=== PATIENT | male | born 1955 | race Caucasian/White ===

== ENCOUNTER → 2017-02-19 | Outpatient (CLI) | payer OTHER ==
[~2017-02-19] MED LIST: CONTRAST GIVEN MC PRN; GADOBUTROL 7.5 MMOL/7.5 ML VIAL INT ART ONE; IOHEXOL 300 MG/ML 50 ML VIAL. INT ART ONE; LIDOCAINE 1% Multi-Dose 20 ML VIAL. ID ONE
--- NOTE | 2017-02-19 15:49 | KCIC ---
PROCEDURE MR arthrogram of the right elbow HISTORY Right elbow pain posteriorly. Weight lifting injury. TECHNIQUE Intra-articular contrast injection reported separately. Standard multiplanar images obtained. COMPARISON None FINDINGS Biceps and brachialis tendons are intact. Triceps tendon intact. The common flexor tendon is intact. Ulnar collateral ligament is intact There is mild common extensor tendinosis with slightly increased signal and thickening, but no measurable defect or tear. No evidence of radial collateral ligament or lateral ulnar collateral ligament rupture. Primary osteoarthritis with cartilage loss about the elbow. No bone lesion or acute fracture. Osteochondral loose body identified posterior to the medial humeral epicondyle measuring 7 millimeter. IMPRESSION 1. Primary osteoarthritis. 2. Posterior loose body. 3. Mild common extensor tendinosis without measurable tear. Electronically signed by: Nasim Olvera MD (Feb 19, 2017 15:47:22)
== END | disposition home or self-care (01) ==
LOC: KCIC 12:42
PROVIDERS: ATTEND Orthopaedic Surgery
DX: M25.521 Pain in right elbow (principal); I10 Essential (primary) hypertension
CPT/HCPCS: 73085; 73222; Q9967; A9585

== ENCOUNTER → 2020-06-08 | Outpatient (CLI) | payer OTHER ==
--- NOTE | 2020-06-08 16:53 | KCIC ---
PA and lateral chest. HISTORY: Family history of heart disease, primary Iridocyclitis, H 20.013 PA and lateral views were taken of the chest. Lungs are clear. Heart is normal in size. There is no effusion. There is slight scoliosis. IMPRESSION: 1. No acute chest disease. Electronically signed by: Reese Masters MD (06/08/2020 4:50 PM) [facility]
== END | disposition home or self-care (01) ==
LOC: KCIC 15:52
PROVIDERS: ATTEND Internal Medicine
DX: H20.013 Primary iridocyclitis, bilateral (principal); M41.84 Other forms of scoliosis, thoracic region
CPT/HCPCS: 71046